=== PATIENT | male | born 1950 | race Caucasian/White ===

== ENCOUNTER 2018-03-30 07:20 | Observation (INO) | payer MEDICARE, BC ==
[2018-03-30] MEDS ORDERED: Diazepam TAB(*) 5 MG ONE (08:15)
[2018-03-30] MEDS ORDERED: Midazolam* 1 MG/ML 5 ML VIAL (5 MG) ONE (08:32)
[2018-03-30] MEDS ORDERED: Lidocaine 1% INJ* 10 MG/ML 30 ML SDV ONE (08:33)
[2018-03-30] MEDS ORDERED: fentaNYL* 50 MCG/ML 2 ML VIAL (100 MCG VIAL) ONE (08:33)
[2018-03-30] MEDS ORDERED: Naloxone* 0.4 MG/ML 1 ML VIAL ONE (08:35)
[2018-03-30] MEDS ORDERED: Flumazenil* 0.1 MG/ML 5 ML MDV ONE (08:35)
[2018-03-30] MEDS ORDERED: ceFAZolin* 2 GM* ONE DOSE (Duplex) IVPB (09:00)
[2018-03-30] MEDS ORDERED: oxyCODONE/Acetamin 5/325 MG* TAB PO PRN (10:00)
[2018-03-30] MEDS ORDERED: Acetaminophen TAB* 325 MG PO PRN (10:00)
[2018-03-30] MEDS: ceFAZolin VIAL 1 GM in NS *SYRINGE * * 10 ML ONE ×2 (10:32→11:02)
[2018-03-30] MEDS: ceFAZolin 1 GM VIAL(*) 1 GM in NS 0.9% 50 ML* 50 ML IVPB SCH (16:36)
[2018-03-31] MEDS: ceFAZolin 1 GM VIAL(*) 1 GM in NS 0.9% 50 ML* 50 ML IVPB SCH ×2 (00:28→08:25)
--- NOTE | 2018-03-31 11:05 | OP ---
DATE OF OPERATION: 03/30/18 - ROOM #[id number] DATE OF : 48 SURGEON: Rod Arroyo MD ANESTHESIA: Local anesthesia with conscious sedation. PRE-OP DIAGNOSIS: Ventricular tachycardia, atrial fibrillation. POST-OP DIAGNOSIS: Ventricular tachycardia, atrial fibrillation. OPERATIVE PROCEDURE: Single chamber ICD implantation. ESTIMATED BLOOD LOSS: Nil. COMPLICATIONS: None. INDICATIONS: The patient is a 67-year-old gentleman with a history of chronic atrial fibrillation who had an LINQ event monitor placed for monitoring of his atrial fibrillation. While he had this device implanted, the patient had a 58- second run of ventricular tachycardia, at which time the patient felt symptomatic and near syncopal. The patient underwent cardiac catheterization which was normal and a cardiac MRI, which was unremarkable. ICD implantation was recommended. DESCRIPTION OF PROCEDURE: The patient was brought to the procedure room in a fasting state. Informed consent had been obtained prior to the procedure. All labs were reviewed. The patient was placed supine on the procedure table. His left delta pectoral area was cleaned and draped in the usual fashion. 1% lidocaine was used for local anesthesia. Under ultrasound guidance, the axillary vein was entered by a modified Seldinger technique and a 4 cm incision was made in the pectoral fascia and blunt dissection was carried down to the fascia and a pocket was fashioned for the ICD. Over the guidewire, a 9-[place] sheath introducer was placed through which a right ventricular ICD lead was advanced at the RV apex. The right ventricular lead is a Medtronic model 6935 serial number [id number]. It had an R-wave sensitivity of 4, impedance 446 ohms , threshold 0.5 volts at 0.5 msec. The ventricular lead was sutured to the pectoral fascia using 0-silk. The pocket was flushed with normal saline. A generator was attached to the ventricular lead. The generator is a Medtronic model [id number] serial number [id number]. The device was placed in the pocket. The surgical incision was closed in 3 layers. The patient was returned to the holding area in stable condition. [id number]/[facility] #: [id number] MTDD
[2018-03-31 15:02] VITALS: BP 120/70
--- NOTE | 2018-04-01 08:18 | DS ---
CC: Dr. Cruz; Dr. Arroyo DISCHARGE SUMMARY: DATE OF ADMISSION: 03/30/18 DATE OF DISCHARGE: 03/31/18 HISTORY OF PRESENT ILLNESS: Mr. De La Cruz is a 67-year-old gentleman with a history of atrial fibrill ation and ventricular tachycardia who is admitted for ICD implantation. PAST MEDICAL HISTORY: The patient has a past medical history of: 1. Chronic atrial fibrillation. 2. Syncope. 3. Ventricular tachycardia seen on event monitor. 4. Left ventricular hypertrophy. 5. Sleep apnea. 6. Hypothyroid disease. 7. Small area of myocardial scar with normal coronaries and normal ejection fraction. ALLERGIES: The patient has no known drug allergies. HOSPITAL COURSE: The patient underwent a single chamber ICD implantation 03/30/18 without complicati ons. Today, he is feeling well. Only mild incisional tenderness. No shortness of breath. No dizzi ness. PHYSICAL EXAMINATION: On exam today, the patient is 6 feet 3 inches weighs 240 pounds with a BMI of 30. Vital Signs: Blood pressure 120/70, pulse is 77 and irregularly irregular, afebrile, oxygen sat uration on room air is 98%. General Appearance: Tall, broad shouldered, fit appearing, somewhat old er gentleman seated in no acute distress. Psychologically, pleasant and cooperative. Neurological: Awake, alert, and oriented to person, place, and time. Cranial nerves II through XII are intact. Gr ossly normal sensory and motor function on exam in the hospital room. Skin: Warm and dry. Defibril lator incision in the left subclavian fossa without ecchymosis, hematoma or evidence of infection. H EENT: Mucous membranes are moist. Neck: Without increased JVP. Lungs: Clear with good effort. N o wheezes, rales, rhonchi. Coronary: S1 and S2 regular without murmurs or rubs. Abdomen: Active vy wel sounds, normal. Extremities: Lower extremities free of edema and warm. STUDIES: The patient's chest x-ray shows good lead placement and no pneumothorax. Defibrillator interrogation done today confirms he has a Medtronic model [id number]. This is a single ch fiordaliza device programmed for juan carlos pacing and VVI at 40. Ventricularly paced 2.5% overnight. The defi brillator lead sensed R waves at 8.1 millivolts, had a lead impedance of 418 ohms and a ventricular p acing threshold of 0.5 volts at 0.4 milliseconds. Underlying rhythm was AFib. In summary, Piotr De La Cruz is a 67-year-old gentleman with a history of chronic atrial fibrillation and ventricular tachycardia seen on event monitor with syncope, now postop day #1, defibrillator imp lantation with good lead placement, good threshold and feeling well. He will be discharged on his ho id medications with the addition of Keflex 250 mg t.i.d. for 3 days and he is scheduled to follow up with Dr. Arroyo for wound check next week. Instructions were written and verbal instructions were pro vided to the patient for wound care and instructions to call if needed with any questions. [id number]/[facility] #: [id number]
== END 2018-03-31 16:26 | disposition home or self-care (01) ==
LOC: CHICATH 07:20 → MEDTELE 10:20 → INTOOBSV 10:20
PROVIDERS: ADMIT Specialist; ATTEND Specialist
DX: I47.2 Ventricular tachycardia (principal); I48.2 Chronic atrial fibrillation; R55 Syncope and collapse; I51.7 Cardiomegaly; G47.30 Sleep apnea, unspecified; E03.9 Hypothyroidism, unspecified; G47.10 Hypersomnia, unspecified; C61 Malignant neoplasm of prostate; Z95.818 Presence of other cardiac implants and grafts
CPT/HCPCS: 33249; 71045; 71046; 93641; 96374; 96375; 96376; 99156; 99157; A9270-GY; C1722; C1898; G0378; J0690; J2250; J2310; J3010

== ENCOUNTER 2018-11-10 13:58 | Observation (INO) | payer MEDICARE, BC ==
--- NOTE | 2018-11-10 14:13 | ED ---
Shortness of Breath - HPI Summary HPI Summary: This patient is a 68 year old M presenting to [facility] by EMS with a chief complaint of SOB since prior to arrival. Pt reports he was chasing his dogs around when he became fatigued, SOB, and almost LOC. Pt reports he is feeling much better now. Pt denies chest pain. Pt has a PMHx of A fib, v-tach, and he has a pacemaker. - History of Current Complaint Time Seen by Provider: 11/10/18 14:07 Hx Obtained From: Patient Onset/Duration: Sudden Onset, Lasting Hours, Still Present Dyspnea At: Exertion Aggravating Factors: Movement Associated Signs & Symptoms: Negative - chest pain - Allergy/Home Medications Allergies/Adverse Reactions: Allergies Allergy/AdvReac Type Severity Reaction Status Date / Time No Known Allergies Allergy Verified 02/15/18 11:27 Home Medications: Home Medications Amoxicillin PO (*) [Amoxicillin 500 MG CAP*] 2,000 mg PO DAILY PRN 11/10/18 [ History Confirmed 11/10/18] Aspirin EC TAB* [Ecotrin EC Low Dose 81 MG*] 81 mg PO DAILY 11/10/18 [History Confirmed 11/10/18] Eric/D3/Mag11/Zinc/Electronic Lab Technician/Martir/Bor [Caltrate 600+D Plus] 1 tab PO DAILY 11/10/18 [ History Confirmed 11/10/18] Glucosam/Chondr/Collagn/Hyalur [Th Glucosamine/Chondroiti] 1 - 2 cap PO DAILY [History Confirmed 11/10/18] PMH/Surg Hx/FS Hx/Imm Hx Endocrine/Hematology History: Reports: Hx Thyroid Disease - hypothyroid Cardiovascular History: Reports: Hx Atrial Fibrillation, Hx Pacemaker/ICD, Hx Supraventricular Ventricular Tachycardia Musculoskeletal History: Denies: Hx Rheumatoid Arthritis, Hx Osteoporosis Sensory History: Reports: Hx Contacts or Glasses Denies: Hx Hearing Aid Opthamlomology History: Reports: Hx Contacts or Glasses - Cancer History Cancer Type, Location and Year: prostate - Surgical History Surgery Procedure, Year, and Place: radiation to prostate - Family History Known Family History: Positive: Diabetes Negative: Hypertension - Social History Occupation: Retired Lives: With Family Alcohol Use: None Substance Use Type: Reports: None Smoking Status (MU): Never Smoked Tobacco Review of Systems Positive: Fatigue Positive: Blurred Vision Negative: Chest Pain Positive: Shortness Of Breath All Other Systems Reviewed And Are Negative: Yes Physical Exam - Summary Physical Exam Summary: Appearance: Acutely ill appearing man, uncomfortable, hypotensive Skin: Warm, dry, no obvious rash Eyes: sclera anicteric, no conjunctival pallor ENT: mucous membranes moist, pharynx appears normal Neck: Supple, nontender Respiratory: Clear to auscultation, no signs of respiratory distress Cardiovascular: Normal S1, S2. No murmurs. Irregularly irregular pulse, tachycardic Abdomen: Soft, nontender, normal active bowel sounds present Musculoskeletal: Normal, Strength/ROM Intact Neurological: A&Ox3, awake and alert, mentation is normal, speech is fluent and appropriate Psychiatric: affect is normal, does not appear anxious or depressed Triage Information Reviewed: Yes Vital Signs On Initial Exam: Initial Vital Signs Temp 96.3 F 11/10/18 13:59 Pulse 114 11/10/18 13:59 Resp 25 11/10/18 13:59 BP 62/34 11/10/18 13:59 Pulse Ox 92 11/10/18 13:59 Vital Signs Reviewed: Yes Diagnostics - Laboratory Result Diagrams: 11/10/18 14:28 11/10/18 14:28 Lab Statement: Any lab studies that have been ordered have been reviewed, and results considered in the medical decision making process. - Radiology CXR Radiology Interpretation Completed By: Radiologist Summary of Radiographic Findings: CXR reveals, per radiologist, IMPRESSION: 1. NO FOCAL AIRSPACE OPACIFICATION. 2. MILDLY ENLARGED CARDIAC SILHOUETTE. ED physician has reviewed this radiology report. - CT Chest/Thorax CT CT Interpretation Completed By: Radiologist Summary of CT Findings: Chest/Thorax CTA reveals, IMPRESSION: No definite evidence of pulmonary embolus. No evidence of aortic dissection is noted. 8mm noncalcified nodule in the left lower lobe. Small 3 mm lesions are noted in the right middle lobe as well as the perifissural nodule noted in the right lower lobe. Follow-up exam in 6 months is suggested. ED physician has reviewed this report. - EKG 1405 EKG Rhythm: Atrial Fibrillation Summary of EKG Findings: EKG reveals a fib 140, frequent PVCs, ischemic ST depressions likely rate related. Re-Evaluation - Re-Evaluation First Eval Re-Evaluation Time: 15:16 Comment: Discussed results with pt and further testing required. Second Eval Re-Evaluation Time: 18:17 Comment: Discussed plan of care with pt Course/Dx - Course Assessment/Plan: This patient is a 68 year old M presenting to [facility] by EMS with a chief complaint of SOB since prior to arrival. Pt reports he was chasing his dogs around when he became fatigued, SOB, and almost LOC. Pt reports he is feeling much better now. Pt denies chest pain. Pt has a PMHx of A fib, v-tach, and he has a pacemaker. Blood work obtained. Potassium is 3.1, Carbon Dioxide is 18, Anion Gap is 15, Creatiniine 1.39, Glucose is 180, magnesium 1.7, total bilirubin is 1.10, total protein is 5.7. Lactic acid is 2.1. TSH is 9.12. Creatinine is 1.39. D- Diner is > 1050. CXR reveals, per radiologist, IMPRESSION: 1. NO FOCAL AIRSPACE OPACIFICATION. 2. MILDLY ENLARGED CARDIAC SILHOUETTE. Chest/Thorax CTA reveals, IMPRESSION: No definite evidence of pulmonary embolus. No evidence of aortic dissection is noted. 8mm noncalcified nodule in the left lower lobe. Small 3 mm lesions are noted in the right middle lobe as well as the perifissural nodule noted in the right lower lobe. Follow- up exam in 6 months is suggested. EKG reveals a fib 140, frequent PVCs, ischemic ST depressions likely rate related. We discussed patient care with Dr. Lockhart and they accept pt for admission. Patient will be admitted. The patient is agreeable with this plan. - Diagnoses Provider Diagnoses: Shock - Physician Notifications Discussed Care of Patient With: Debbie Lockhart Time Discussed With Above Provider: 17:55 Instructed by Provider To: Other - Discussed pt's case with Dr. Lockhart, who accepts pt for admission. - Critical Care Time Critical Care Time: 30-74 min Discharge - Sign-Out/Discharge Documenting (check all that apply): Patient Departure - Admit All imaging exams completed and their final reports reviewed: Yes Patient Received Moderate/Deep Sedation with Procedure: No - Discharge Plan Condition: Fair Disposition: ADMITTED TO [facility] - Attestation Statements Document Initiated by Scribe: Yes Documenting Scribe: Felicia Herman Provider For Whom Scribe is Documenting (Include Credential): MD Trev Orourkeibe Attestation: Felicia Villegas, scribed for Dr. Piotr Gil MD on 11/10/18 at 1926. Status of Scribe Document: Ready
[2018-11-10] MEDS ORDERED: NS 0.9% 1000 ML** 3,000 ML IV ONE (14:42)
[2018-11-10 14:54] LABS: Troponin I 0.01 ng/mL (<0.04)
[2018-11-10 14:56] LABS: Albumin 3.5 g/dL (3.2-5.2); Albumin/Globulin Ratio 1.6 (1-3); BUN/Creatinine Ratio 15.1 (8-20); Calcium 9.1 mg/dL (8.6-10.3); EGFR African American 61.3 (>60); EGFR Non-African American 50.7 (>60); Globulin 2.2 g/dL (2-4); Magnesium 1.7 mg/dL (1.9-2.7); Potassium 3.1 mmol/L (3.5-5.0); Total Bilirubin 1.1 mg/dL (0.2-1.0); Total Protein 5.7 g/dL (6.4-8.9)
[2018-11-10] MEDS ORDERED: Piperacillin/Tazobac ADVAN(*) 3.375 GM in NS 0.9% 100 ML* 100 ML IVPB ONE (14:56)
[2018-11-10] MEDS ORDERED: Vancomycin(*) 1,000 MG VIAL IVPB SCH (15:00)
[2018-11-10 15:10] LABS: Hematocrit 44 % (42-52); Hemoglobin 14.6 g/dL (14.0-18.0); Mean Corpuscular HGB Conc 34 g/dL (31-36); Mean Corpuscular Hemoglobin 30 pg (27-31); Mean Corpuscular Volume 89 fL (80-94); Mean Platelet Volume 9.6 fL (7.4-10.4); Platelet Count 175 10^3/uL (150-450); Red Blood Count 4.89 10^6 /uL (4.18-5.48); Red Cell Distribution Width 14 % (10-15); White Blood Count 2.6 10^3/uL (3.5-10.8)
[2018-11-10] MEDS ORDERED: Vancomycin(*) 1,750 MG in NS 0.9% 500 ML* 500 ML IVPB ONE (15:30)
[2018-11-10] MEDS ORDERED: Iodixanol* (CONTRAST) 320 MG/ML 100 ML SDV IV ONE (15:32)
[2018-11-10 16:08] LABS: TSH (Thyroid Stimulating Horm) 9.12 mcIU/mL (0.34-5.60)
[2018-11-10] MEDS ORDERED: Acetaminophen TAB* 325 MG PO PRN (17:56)
[2018-11-10] MEDS ORDERED: Lactated Ringers 1000 ML Bag* 1,000 ML IV SCH (18:00)
[2018-11-10] MEDS ORDERED: Potassium Chlor TAB* 20 MEQ TAB.ER PO ONE (18:04)
[2018-11-10] MEDS ORDERED: Magnesium Sulfate 2 GM IV* 2 GM/50 ML BAG IVPB ONE (18:05)
--- NOTE | 2018-11-10 21:05 | HP ---
CC: Dr. Cruz; Dr. Arroyo * HISTORY AND PHYSICAL: DATE OF ADMISSION: 11/10/18 PRIMARY CARE PROVIDER: Dr. Cruz. AUTOMOBILE ACCESSORIES INSTALLER: Dr. Arroyo. CHIEF COMPLAINT: Syncope. HISTORY OF PRESENT ILLNESS: Mr. De La Cruz is a 68-year-old male who states that he was outside working in the hot sun all morning. He then noticed that his dogs got outside and were running around the neighborhood. He went essentially running very quickly after them. He does not describe this completely as running, but moving faster than he has moved in a long time. He states that he caught the dogs and very suddenly began to feel faint. He had to get down to the ground. He was holding onto the dogs by the collars. He almost passed out , but did not completely lose consciousness. He does not state that his vision went black. He states that he felt very dehydrated. He is currently feeling better after receiving 3 L of IV fluids in the emergency room. The patient also notes that he felt quite exhausted the night prior to admission from working very hard out in the yard previously. The patient did not tell me initially, but subsequently remembered that approximately 20 minutes before the syncopal episode, he was stung by 3 to 4 bees. PAST MEDICAL HISTORY: 1. Atrial fibrillation. 2. Ventricular tachycardia. 3. Hypothyroidism. 4. RASHIDA. 5. Prostate cancer. PAST SURGICAL HISTORY: 1. AICD insertion. 2. Left hip replacement. 3. Left rotator cuff repair. 4. shoulder surgery on the right. 5. Right patellar tendon surgery. MEDICATIONS: 1. Metoprolol tartrate 25 mg p.o. b.i.d. 2. Synthroid 200 mcg p.o. daily. 3. Glucosamine chondroitin 1 to 2 caps p.o. daily. 4. Caltrate 600 + D 1 tab p.o. daily. 5. Aspirin 81 mg p.o. daily. 6. Amoxicillin 2000 mg p.o. once p.r.n. dental work. ALLERGIES: No known drug allergies. FAMILY HISTORY: Mom is living, she has AFib and dementia. Dad is at the age of 85 with lung cancer. SOCIAL HISTORY: The patient does not smoke. He does not drink alcohol. 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 He is . He has 3 children. His is his healthcare proxy. REVIEW OF SYSTEMS: A complete 11-system review of systems was obtained. Pertinent positives and negatives are as per HPI. In addition, the patient does state that he has some intermittent queasiness today. Otherwise, the review of systems is negative. PHYSICAL EXAMINATION GENERAL: The patient is a well-developed, middle aged male seen sitting in the stretcher, appearing quite chilled currently, but in no acute distress. VITAL SIGNS: Blood pressure 98/76, pulse 100, respiratory rate 14, temp 96.3, O2 sat 99% on room air. The patient's lowest BP on arrival was 62/34. HEENT: Pupils are equal and round. Extraocular muscles are intact. Oropharynx is clear. Oral mucosa is moist. NECK: There is no submandibular, cervical, or supraclavicular adenopathy. Thyroid is not enlarged. No thyroid nodules are noted. PULMONARY: Lungs are clear to auscultation bilaterally. CARDIAC: Normal S1, S2. Heart rate is irregularly irregular and mildly tachycardic. There is no lower extremity edema. ABDOMEN: Bowel sounds present. Abdomen is soft, nontender, nondistended. MUSCULOSKELETAL: The patient moves all 4 extremities symmetrically. NEUROLOGIC: Cranial nerves II through XII are grossly intact. Sensation is intact to light touch throughout. Strength is 5/5 and symmetric in both upper and lower extremities bilaterally. SKIN: Warm and dry. There are no rashes. There are scabbed over lesions on the left anterior dallas. There is a fresh skin tear to the right anterior dallas. PSYCH: The is alert. He is oriented x3. Affect appears appropriate. LABORATORY DATA/DIAGNOSTIC STUDIES: WBC 2.6, hemoglobin 14.6, hematocrit 44, platelets 175. Absolute neutrophil count 1.4, D-dimer greater than 1050. Sodium 144, potassium 3.1, chloride 111, CO2 18, BUN 21, creatinine 1.39, glucose 180, lactic acid 5.1, calcium 9.1, magnesium 1.7, bilirubin 1.1. AST 19 , ALT 16, alk phos 67, troponin 0.01, albumin 3.5, TSH 9.12. EKG reveals atrial fibrillation with PVCs. Chest x-ray: There are no focal airspace opacifications. There is mildly enlarged cardiac silhouette. CTA chest: No definite evidence of pulmonary embolism. No evidence of aortic dissection is noted. An 8-mm noncalcified nodule in the left lower lobe is noted. Small 3-mm lesions are noted in the right middle lobe as well as a perifissural nodule in the right lower lobe. Followup exam in 6 months' time is recommended. ASSESSMENT AND PLAN: Mr. De La Cruz is a 68-year-old male who has a history of atrial fibrillation, ventricular tachycardia, for which he has an AICD, hypothyroidism, and obstructive sleep apnea, who was working out in the yard when his dogs got out. He ran after the dogs, and once he caught them, he felt near syncopal and was found to be markedly hypotensive and tachycardic upon EMS arrival. 1. Near syncope with likely hypovolemic shock. The patient likely was dehydrated based on being out working in the hot sun over the last several days. His labs would corroborate this with his creatinine being elevated above his baseline and his elevated lactic acid of 5.1. The patient has received 3 L of fluid in the emergency room and with this, his blood pressure has improved. We will need to monitor his blood pressure closely as he may still be volume depleted. Followup lactic level is pending for 1829. There is no clear source of infection at this time. Blood cultures have been sent. Urinalysis is still needed. I am going to hold off on any further antibiotic therapy. The patient did receive vancomycin and Zosyn in the emergency room. 2. Atrial fibrillation. The patient remains in atrial fibrillation with a mildly elevated heart rate. I am going to be holding his metoprolol for now due to the severe hypotension he presented with. He will tolerate atrial fibrillation in the 100 to 110 range for now. We will continue aspirin. 3. Hypothyroidism. The patient's TSH is elevated at 9.12. Free T4 has been added on to the labs obtained in the emergency room. 4. Obstructive sleep apnea. The patient will be maintained on CPAP. 5. Leukopenia. This is a new finding for the patient. I only have one other lab value from January 2018, and it was normal at 6.2. Followup CBC will be obtained tomorrow. If the patient remains leukopenic, an outpatient hematology evaluation may be warranted. 6. DVT prophylaxis: According to the Adult Thrombosis Prophylaxis Risk Factor Assessment Guide, the patient has a total risk factor score of 5, making him the highest risk. Lovenox 40 mg subcutaneous daily will be administered starting tomorrow morning for DVT prophylaxis. 7. Code status is full. TIME SPENT: 65 minutes was spent admitting this patient. [id number]/[facility] #: [id number] MTDD
[2018-11-11 05:47] LABS: Hematocrit 38 % (42-52); Hemoglobin 12.9 g/dL (14.0-18.0); Mean Corpuscular HGB Conc 34 g/dL (31-36); Mean Corpuscular Hemoglobin 30 pg (27-31); Mean Corpuscular Volume 89 fL (80-94); Mean Platelet Volume 9.8 fL (7.4-10.4); Platelet Count 108 10^3/uL (150-450); Red Cell Distribution Width 14 % (10-15); White Blood Count 11.5 10^3/uL (3.5-10.8)
[2018-11-11] MEDS ORDERED: Enoxaparin(*) 40 MG/0.4 ML SYR SUBCUT SCH (06:00)
[2018-11-11] MEDS ORDERED: Levothyroxine TAB* 100 MCG TAB PO SCH (06:00)
[2018-11-11 06:11] LABS: BUN/Creatinine Ratio 15.5 (8-20); Calcium 8.4 mg/dL (8.6-10.3); EGFR African American 41.7 (>60); EGFR Non-African American 34.5 (>60); Potassium 4.3 mmol/L (3.5-5.0)
--- NOTE | 2018-11-11 08:37 | PN ---
Subjective Date of Service: 11/11/18 Objective Active Medications: Acetaminophen (Tylenol Tab*) 650 mg PO Q4H PRN PRN Reason: mild pain Aspirin (Aspirin Ec Tab*) 81 mg PO DAILY [facility] Last Admin: 11/11/18 07:38 Dose: 81 mg Enoxaparin Sodium (Lovenox(*)) 40 mg SUBCUT Q24H [facility] Last Admin: 11/11/18 05:12 Dose: 40 mg Lactated Ringer's (Lactated Ringers 1000 Ml Bag*) 1,000 mls @ 125 mls/hr IV PER RATE [facility] Last Admin: 11/11/18 05:12 Dose: 125 mls/hr Levothyroxine Sodium (Synthroid Tab*) 200 mcg PO DAILY@0600 [facility] Last Admin: 11/11/18 05:12 Dose: 200 mcg Vital Signs - 8 hr 11/11/18 11/11/18 03:27 07:26 Temperature 98.2 F Pulse Rate 85 71 Respiratory 20 18 Rate Blood Pressure 102/56 106/71 (mmHg) O2 Sat by Pulse 99 98 Oximetry Oxygen Devices in Use Now: None Result Diagrams: 11/11/18 05:05 11/11/18 05:05 Assess/Plan/Problems-Billing Assessment: 68 yr old male with pmh of afib, v tach, hypothyroid, mg, prostate ca; who presented to the Emergency Department after a near snycopal episode - Patient Problems (1) Syncope Current Visit: Yes Status: Acute Code(s): R55 - SYNCOPE AND COLLAPSE SNOMED Code(s): 933095494 (2) Atrial fibrillation Current Visit: Yes Status: Acute Code(s): I48.91 - UNSPECIFIED ATRIAL FIBRILLATION SNOMED Code(s): 22089633 (3) Ventricular tachycardia Current Visit: Yes Status: Acute Code(s): I47.2 - VENTRICULAR TACHYCARDIA SNOMED Code(s): 73238787 (4) Hypothyroid Current Visit: Yes Status: Acute Code(s): E03.9 - HYPOTHYROIDISM, UNSPECIFIED SNOMED Code(s): 39178100 (5) MG (obstructive sleep apnea) Current Visit: Yes Status: Acute Code(s): G47.33 - OBSTRUCTIVE SLEEP APNEA ( ADULT) (PEDIATRIC) SNOMED Code(s): 58268480 (6) Elevated serum creatinine Current Visit: Yes Status: Acute Code(s): R79.89 - OTHER SPECIFIED ABNORMAL FINDINGS OF BLOOD CHEMISTRY SNOMED Code(s): 911471031 (7) Lactic acidosis Comment: - Lactic acid 5.1 on admission. Repeat last evening 2.1 - Suspected secondary to deydration and near syncope - Repeat Lactic Acid ordered since last result was greater than 2 (8) Lung nodule Comment: - Incidental CT findings as below: - 8 mm nodule in in left lower lobe and 3 mm lesions in right middle lobe and perifissural nodule right lower lobe - Needs follow up image in 6 months
[2018-11-11] MEDS ORDERED: Aspirin EC TAB* 81 MG TAB.EC PO SCH (09:00)
[2018-11-11 10:21] LABS: Urine Appearance Clear; Urine Bilirubin Negative (Negative); Urine Blood Negative (Negative); Urine Color Yellow; Urine Glucose Negative (Negative); Urine Ketones Negative (Negative); Urine Nitrite Negative (Negative); Urine Protein Negative (Negative); Urine Specific Gravity 1.017 (1.010-1.030); Urine Urobilinogen Negative (Negative)
--- NOTE | 2018-11-11 10:23 | ECHO ---
*[facility]* [place] [address] Fax #: [phone] Transthoracic Echocardiogram Patient: Piotr De La Cruz : 1950 Study Date: 11/11/2018 Age: 68 Gender: M HR: 69 bpm Height: 75 in /190.5 cm BSA: 2.45 m^2 Weight: 257.5 lb /117 kg BMI: 32.2 kg/m^2 *Tube Wrapper: Flora Lujan [facility] *Referring Physician: * Debbie LockhartReading Physician: * Miranda Estrada MD Indications: Hypotension. History: Ventricular tachycardia arrest. Atrial fibrillation. Labs, prior tests, procedures, and surgery: ICD system implantation. Conclusions Summary: 1. Left ventricle: The cavity size is normal. Wall thickness is mildly increased. Systolic function is normal. The estimated ejection fraction is 50-55%. 2. Left atrium: The atrium is moderately to severely dilated. 3. Right atrium: The atrium is moderately dilated. 4. Mitral valve: There is mild regurgitation. 5. Aortic valve: There is mild regurgitation. 6. No previous echocardiogram available. Study data: Transthoracic echocardiogram. Procedure: Transthoracic echocardiography was performed. Image quality was good. Complete 2D, spectral Doppler, and color flow Doppler. Location: Bedside. Patient status: Inpatient. Patient room number: 432. Rhythm: Atrial fibrillation. Findings Left ventricle: The cavity size is normal. Wall thickness is mildly increased. Systolic function is normal. The estimated ejection fraction is 50-55%. Wall motion is normal; there are no regional wall motion abnormalities. Left ventricular diastolic function parameters are indeterminate. Right ventricle: The cavity size is normal. Pacer wire noted in the right ventricle. Systolic function is normal. Left atrium: The atrium is moderately to severely dilated. Right atrium: The atrium is moderately dilated. Pacer wire noted in right atrium. Mitral valve: The leaflets are mildly thickened. There is no evidence of stenosis. There is mild regurgitation. Aortic valve: The valve is trileaflet. The leaflets are normal thickness. There is no evidence of stenosis. There is mild regurgitation. Tricuspid valve: The leaflets are normal thickness. There is no evidence of stenosis. There is trivial regurgitation. Pulmonic valve: The leaflets are normal thickness. There is no evidence of stenosis. There is no significant regurgitation. Pericardium: There is no significant pericardial effusion. Pulmonary arteries: Not well visualized. Systolic pressure can not be accurately estimated. Systemic veins: Inferior vena cava: The vessel is dilated. The respirophasic diameter changes are blunted (< 50%). Measurements Left ventricle Value Ref Aortic valve Value Ref CHEY, LAX 4.8 cm 4.2 - 5.8 Vijaya diam, ED 2.4 cm ---- ESD, LAX 3.2 cm 2.5 - 4.0 Peak v, S 1.25 m/sec ---- FS, LAX 33 % 25 - 43 Peak grad, S 6.0 mm Hg ---- PW, ED, LAX (H) 1.2 cm 0.6 - 1.0 EF 61 % 52 - 72 Mitral valve Value Ref E', lat vijaya, TDI 14.5 cm/sec >=10.0 Peak E 1.08 m/sec ---- E/e', lat vijaya, 7 Peak A 0.03 m/sec ---- TDI Decel time 133 ms ---- PHT 65 ms ---- LVOT Value Ref Mean grad, D 3.0 mm Hg ---- Peak sofía, S 0.96 m/sec Peak grad, D 6.0 mm Hg ---- Peak E/A ratio 40 ---- Ventricular septum Value Ref MVA, PHT 3.4 cm^2 ---- IVS, ED (H) 1.3 cm 0.6 - 1.0 Pulmonic valve Value Ref Right ventricle Value Ref Peak v, S 0.78 m/sec ---- CHEY, LAX 3.6 cm Peak grad, S 2.0 mm Hg ---- CHEY minor ax, A4C 3.5 cm 1.9 - 3.5 mid Aortic root Value Ref Root diam 3.5 cm <4.5 Left atrium Value Ref AP dim, ES (H) 4.50 cm 3.00 - Aortic arch Value Ref 4.00 Arch diam 3.7 cm ---- ML dim, A4C 5.5 cm SI dim, A4C 6.5 cm Decending aorta Value Ref Vol/bsa, ES, A/L (H) 47 ml/m^2 16 - 34 Klarissa peak sofía 1.01 m/sec ---- Right atrium Value Ref Inferior vena cava Value Ref SI dim, ES (H) 6.4 cm 3.4 - 5.3 Diam 2.9 cm ---- ML dim, ES, A4C (H) 4.9 cm 2.6 - 4.4 Estimated RAP 8 mm Hg Legend: (L) and (H) susana values outside specified reference range. Prepared and electronically signed by Miranda Estrada MD 11/11/2018 10:22
[2018-11-11 10:45] LABS: Urine Creatinine Concentration 99.16 mg/dL
[2018-11-11 13:24] LABS: EGFR African American 48.3 (>60); EGFR Non-African American 39.9 (>60)
[2018-11-11 15:11] VITALS: BP 120/81
--- NOTE | 2018-11-12 00:07 | DS ---
CC: Dr. Cruz; Dr. Arroyo * DISCHARGE SUMMARY: DATE OF ADMISSION: 11/10/18 DATE OF DISCHARGE: 11/11/18 PRIMARY CARE PROVIDER: Dr. Cruz. OUTPATIENT VENEER SPLICER: Dr. Arroyo. ATTENDING PHYSICIAN: Dr. Coffman * (dictated by Manuel Lazo NP). PRIMARY DIAGNOSES: 1. Near syncope. 2. Atrial fibrillation. 3. Hypothyroidism. 4. Obstructive sleep apnea. 5. Leukopenia. 6. Ventricular tachycardia. CONSULTATIONS WHILE IN THE HOSPITAL: Dr. Estrada, Cardiology. STUDIES WHILE IN THE HOSPITAL: 1. Chest x-ray: No focal airspace opacification. Mildly enlarged cardiac silhouette. Atrial fibrillation. 2. Chest/thorax CTA: No definite evidence of pulmonary embolism. No evidence of aortic dissection is noted. 8-mm noncalcified nodule in the left lower lobe. Small 3-mm lesions are noted in the right middle lobe as well as perifissural nodule noted in the right lower lobe. Followup exam in 6 months is suggested. 3. Transthoracic echo: Impression: Left ventricle: The cavity size is normal. Wall thickness is mildly increased. Systolic function is normal. The estimated ejection fraction is 50% to 55%. Left atrium: The atrium is moderately and severely dilated. Right atrium: The atrium is mildly dilated. Mitral valve: There is mild regurgitation. Aortic valve: There is mild regurgitation. 4. Venous Doppler: No evidence of deep vein thrombosis in either lower extremity. DISCHARGE HOME MEDICATIONS: Continued home medications: 1. Metoprolol tartrate 25 mg p.o. b.i.d. 2. Synthroid 200 mcg p.o. daily. 3. Glucosamine chondroitin 1 to 2 capsules p.o. daily. 4. Caltrate 600 plus D 1 tab p.o. daily. 5. Aspirin 81 mg p.o. daily. 6. Amoxicillin 2000 mg p.o. once p.r.n. dental work. New home medications: No new home medications. HISTORY OF PRESENT ILLNESS/HOSPITAL COURSE: Mr. De La Cruz is a 68-year-old male with past medical history significant for atrial fibrillation, ventricular tachycardia, hypothyroidism, RASHIDA, who presented to the emergency department on 11/10/18 after a near syncopal episode. Please see history and physical dictated by Debbie Lockhart DO for complete summary of the events leading to this hospitalization, but in short, the patient presented to the emergency room via ambulance after a near syncopal episode. While in the emergency room, the patient was noted to be leukopenic, have an elevated D-dimer, elevated creatinine, lactic acidosis; therefore, hospitalists were asked to evaluate for admission. In addition, while in the emergency department, the patient did receive a CTA of chest as mentioned above. The patient also had an EKG, which revealed atrial fibrillation with PVCs. Additionally, while in the emergency department, the patient was noted to be hypotensive with systolic in the 70s. Therefore, he received 3 L of fluid. The patient's blood pressure improved and symptoms also improved. During this admission, the patient continued to receive gentle IV fluid hydration and p.o. hydration. The patient was on tele. It was noted to be in atrial fibrillation, rate controlled. The patient had repeat labs, which revealed resolution of leukopenia, but he is noted to have slight leukocytosis. The patient also had an improvement in his creatinine, and resolution of lactic acidosis. In addition during this hospitalization, the patient underwent echo as mentioned above. The patient also had his AICD interrogated and Cardiology was consulted. Dr. Estrada reviewed the interrogation of the AICD and echo and reports that the patient did not have any ventricular arrhythmias during the time of his near syncope, instead he did have tachycardia. Dr. Estrada is recommending that the patient increase his metoprolol to 37.5 mg p.o. b.i.d. He is also recommending that he remains hydrated. Given the patient had an elevated D-dimer on admission but a negative CT, we ordered a venous Doppler to rule out DVT. The venous Doppler study was negative. The patient is stable for discharge home today. Unfortunately, the patient was unwilling to wait for results of venous Doppler study for discharge; therefore, he left AMA. The patient left before instructions could be given, although the patient was educated by nurse regarding hydration and medication. REVIEW OF SYSTEMS: A 14-point review of systems was completed and all were negative. PHYSICAL EXAMINATION: Vital Signs: Temp 98.4, HR 73, RR 20, O2 saturation 98% on room air, BP 120/81. General: Mr. De La Cruz is a 68-year-old male who is sitting on the edge of the bed. Appears to be in no acute distress. Appears stated age. HEENT: EOMs intact. PERRLA. Oral mucosa is moist without lesion. Posterior pharynx is clear. Neck: Supple. No lymphadenopathy. Cardiac: S1 , S2 present. Irregular rhythm. Regular rate. No murmurs, rubs, or gallops. Respiratory: Lungs are clear to auscultation. Good aeration. No wheezes, rhonchi, or rubs. Abdomen: Soft, nontender. Bowel sounds normoactive. Extremities: No edema. No clubbing or cyanosis. Pedal pulses 2+ bilaterally. Musculoskeletal: No pain or deformities. Skin: No rashes or lesions. Neuro : Neuro exam is grossly intact. No focal deficits or weakness. LABORATORY DATA: WBC 11.5, hemoglobin 12.9, hematocrit 38, platelets 108. D- dimer greater than 1050. Sodium 137, potassium 4.3, chloride 109, carbon dioxide 21, anion gap 7, BUN 30, creatinine 1.71, glucose 97, lactic acid 1.5, magnesium 2.0. TSH 9.12. Free T4 1.08. DISCHARGE PLAN/FOLLOWUP: As mentioned above, the patient did leave [facility] and we are awaiting for the results of his lower extremity Doppler to be completed. Unfortunately, the patient did not receive discharge instructions but the nurse was able to educate the patient on staying hydrated, when to return to the emergency department, and medications. 1. Near syncope: Given the patient's labs, which support dehydration and the patient's improvement with 3 L of fluid. We suspect that the patient's near syncope was secondary to hypovolemic shock. The patient reports he had been working outside all day and then ran after his dogs who tried to escape the yard. The patient also had interrogation of his AICD, which did not reveal any ventricular arrhythmias. The patient also had an echo, which did not reveal any concerning findings for the near syncopal episode. The patient has been educated on increasing fluid intake, specifically water especially in hot temperatures. 2. Atrial fibrillation: The patient is in atrial fibrillation. The patient can continue his home medications of metoprolol and aspirin. The patient to follow up with Dr. Arroyo. The patient was encouraged by Dr. Estrada to increase his metoprolol to 37.5 mg p.o. b.i.d. given the findings of tachycardia on his AICD monitor. Nurse discussed this with patient and the patient plans to not increase until he follows up with Cardiology and I think this is reasonable. 3. Hypothyroid: The patient's TSH is 9.12 and free T4 is 1.08. I did not adjust the patient's Synthroid at this time as this could be falsely elevated given his acute illness. The patient should follow up with his primary care for redraw and further adjustment if needed. 4. RASHIDA: The patient should continue his CPAP. 5. Leukocytosis: The patient has slight leukocytosis at 11.5. The patient has no fever, tachycardia, or sign of infection. I suspect this is secondary to the patient's near syncope and dehydration. The patient is to follow up with his primary care for repeat BMP in 1 week. 6. Elevated creatinine: The patient has an elevated creatinine at 1.71. This is down from 1.94. I suspect this is secondary to dehydration and possibly shocks with kidneys given his hypotension on admission. I have encouraged the patient to remain hydrated. The patient is to follow up with his primary care in 1 week for repeat BMP. 7. Followup: The patient to follow up with Dr. Arroyo in the next 1 to 2 weeks. The patient to follow up with his primary care provider early next week. The patient to have a repeat BMP and CBC. 8. Education: The patient was educated by the nurse on signs and symptoms of new or worsening condition and when to return to the emergency department. The patient stated understanding. 9. Elevated D-dimer: As mentioned above, the patient did have an elevated D- dimer, and his CTA and venous Doppler of his lower extremities are negative. TIME SPENT: Approximately 35 minutes were spent on this discharge. Unfortunately, the patient did not stay to discuss discharge instructions but we did briefly discuss the plan and instructions on my first assessment of the patient during the day. This is a summarized report of a complex medical history and hospital stay. For further details, please see the entire medical record. Once again, the patient did leave AMA before discharge instructions. This plan was discussed with my attending Dr. Coffman, who is in agreement with my plan of care. MANUEL LAZO, JESUS [id number]/[facility] #: [id number] DENIS
== END 2018-11-11 17:20 | disposition left against medical advice (07) ==
LOC: ED 13:58 → MEDTELE 17:56
PROVIDERS: ADMIT Hospitalist; ATTEND Internal Medicine
DX: R55 Syncope and collapse (principal); I48.91 Unspecified atrial fibrillation; E03.9 Hypothyroidism, unspecified; G47.33 Obstructive sleep apnea (adult) (pediatric); D72.819 Decreased white blood cell count, unspecified; I47.2 Ventricular tachycardia; Z79.899 Other long term (current) drug therapy; Z79.82 Long term (current) use of aspirin; Z85.46 Personal history of malignant neoplasm of prostate; Z95.0 Presence of cardiac pacemaker; H53.8 Other visual disturbances; R53.83 Other fatigue; R06.02 Shortness of breath
CPT/HCPCS: 36415; 71045; 71275; 80048; 80053; 80320; 81003; 82565; 82570; 83605; 83735; 84300; 84439; 84443; 84484; 85025; 85027; 85379; 87040; 93005; 93306; 93970; 96365; 96367; 96372; 99285; A9270-GY; G0378; G0480; J1650; J2543; J3370; J3475; Q9967